=== PATIENT | female | born 1970 | race Caucasian/White ===

== ENCOUNTER 2017-06-19 12:59 | Emergency (ER) | payer SELFPAY ==
[~2017-06-19] VITALS: Ht 167.6 cm; Wt 75.0 kg
[~2017-06-19 12:59] MED LIST: LACO200T2 PO; LEVO125T PO; LEVO25TA53 PO
[2017-06-19 13:06] VITALS: Ht 167.6 cm; Wt 75.0 kg
== END 2017-06-19 13:06 | disposition left against medical advice (07) ==
LOC: E/R 12:59
DX: Z53.21 Procedure and treatment not carried out due to patient leaving prior to being seen by health care provider (principal)

== ENCOUNTER 2018-10-13 23:47 | Observation (INO) | payer OTHER ==
[~2018-10-13] VITALS: Ht 175.3 cm; Wt 81.8 kg
[~2018-10-13 23:47] MED LIST changes: -LEVO25TA53 PO; +LEVO25TA6 PO
[2018-10-13] MEDS ORDERED: SOD CHLORIDE 0.9% 1,000 ML IV STA (23:57)
[2018-10-13] MEDS ORDERED: LORAZEPAM 2 MG INJ IV STA (23:57)
[2018-10-14] VITALS (9 sets, daily range): BP systolic 121–145; BP diastolic 64–79; PULSE 76–95; RESP 18–22; Ht 175.3 cm; Wt 81.8 kg
[2018-10-14] MEDS ORDERED: LORAZEPAM 2 MG INJ IV ONE (01:30)
--- NOTE | 2018-10-14 01:35 | ERD ---
ER Documentation Chief Complaint Chief Complaint ERICKSON ALEJANDRA,from home,seizure,hx sz,Jose dz,MS HPI This is a 48-year-old brought in by rescue [facility] from home with complaints of seizure. Patient has a history of seizure disease and is on Vimpat at home. She is been compliant with her medications. Also has history of multiple scl erosis. Patient was postictal upon arrival and had another seizure here in the department was given another dose of intravenous Ativan. Apparently the patient has a difficult seizure history per the at the bedside. Reviewing EMR, patient has been under a few times with similar complaints. According to patient was at baseline health status until the seizure episode ROS All systems reviewed and are negative except as per history of present illness. Medications Home Meds Active Scripts Lacosamide (Vimpat) 200 Mg Tablet, 200 MG PO BID, #60 TAB Prov:ADALBERTO GUERRA MD 12/11/15 Reported Medications Levothyroxine Sodium* (Synthroid*) 125 Mcg Tablet, 125 MCG PO BEFORE BREAKFAST, #30 TAB 12/11/15 Levothyroxine Sodium* (Levothyroxine Sodium*) 25 Mcg Tablet, 25 MCG PO AC BREAKFAST, TAB 05/14/15 Allergies Allergies: Coded Allergies: levetiracetam (Verified Allergy, Severe, SEVERE CONFUSION, 08/29/15) Uncoded Allergies: HORMONES (Allergy, Unknown, 09/13/14) UNK TYPE OF ABX (Allergy, Unknown, 09/13/14) PMhx/Soc History of Surgery: Yes (RIGHT ANKLE FRACTURE AND SX (JANUARY 2016)) Anesthesia Reaction: No Hx Neurological Disorder: Yes (MULTIPLE SCLEROSIS,seizure) Hx Respiratory Disorders: No Hx Cardiac Disorders: No Hx Psychiatric Problems: No Hx Miscellaneous Medical Probl: Yes (HERPES ZOSTER, MONONUCLEOSIS,Jose dz) Hx Alcohol Use: Yes (SOCIALLY) Hx Substance Use: No Hx Tobacco Use: No Smoking Status: Never smoker Physical Exam Vitals Vital Signs Date Temp Pulse Resp B/P (MAP) Pulse Ox O2 O2 Flow FiO2 Time Delivery Rate 10/14/18 97.7 62 18 208/175 97 00:05 (186) Physical Exam Const: No acute distress Head: Atraumatic Eyes: Normal Conjunctiva ENT: Normal External Ears, Nose and Mouth. Neck: Full range of motion. No meningismus. Resp: Clear to auscultation bilaterally Cardio: Regular rate and rhythm, no murmurs Abd: Soft, non tender, non distended. Normal bowel sounds Skin: No petechiae or rashes Back: No midline or flank tenderness Ext: No cyanosis, or edema Neur: Awake and alert Psych: Normal Mood and Affect Result Diagram: 10/14/18 0038 10/14/188 Results 24 hrs Laboratory Tests Test 10/14/18 00:38 White Blood Count 10.6 10^3/ul Red Blood Count 4.54 10^6/ul Hemoglobin 14.1 g/dl Hematocrit 37.9 % Mean Corpuscular Volume 83.5 fl Mean Corpuscular Hemoglobin 31.1 pg Mean Corpuscular Hemoglobin Concent 37.2 g/dl Red Cell Distribution Width 11.4 % Platelet Count 325 10^3/UL Mean Platelet Volume 8.3 fl Immature Granulocytes % 0.400 % Neutrophils % 81.6 % Lymphocytes % 13.6 % Monocytes % 3.8 % Eosinophils % 0.3 % Basophils % 0.3 % Nucleated Red Blood Cells % 0.0 /100WBC Immature Granulocytes # 0.040 10^3/ul Neutrophils # 8.6 10^3/ul Lymphocytes # 1.4 10^3/ul Monocytes # 0.4 10^3/ul Eosinophils # 0.0 10^3/ul Basophils # 0.0 10^3/ul Nucleated Red Blood Cells # 0.0 10^3/ul Sodium Level 124 mmol/L Potassium Level 3.3 mmol/L Chloride Level 86 mmol/L Carbon Dioxide Level 27 mmol/L Anion Gap 11 Blood Urea Nitrogen 10 mg/dl Creatinine 0.47 mg/dl Est Glomerular Filtrat Rate mL/min > 60 mL/min Glucose Level 156 mg/dl Calcium Level 9.2 mg/dl Current Medications Medications Dose Sig/Vashti Start Time Status Last (Trade) Ordered Route PRN Stop Time Admin Dose Reason Admin Sodium 1,000 ml @ Q1H STAT 10/13/18 DC 10/14/18 Chloride 1,000 mls/hr IV 23:57 10/14/18 00:07 00:56 Lorazepam 1 mg ONCE STAT 10/13/18 DC 10/14/18 (Ativan) IV 23:57 10/14/18 00:07 00:04 Lorazepam 2 mg ONCE ONCE 1/2/19 DC (Ativan) IV 01:30 10/14/18 01:31 Procedures/MDM Medical decision making: This is a very pleasant patient who unfortunately suffers from seizure disorder. Given her multiple seizures here multiple doses of intravenous benzodiazepines that were not necessitated, patient will be admitted to hospitalist for further evaluation and care. Dr. CORRAL made aware 1:36 AM. Critical Care: Time: 35 minutes, independent of any separately billable procedural time Treatments/Evaluations: Close monitoring and treatment of unstable vital signs, cardiorespiratory, and neurologic status, while maintaining tight balance of fluid, respiratory, and cardiac interventions. Departure Diagnosis: Primary Impression: Seizure disorder Additional Impressions: Postictal state Multiple sclerosis Seizure Condition: Serious CARLA MONAHAN Oct 14, 2018 01:35
[2018-10-14] MEDS ORDERED: NACL 0.9% 3 ML SYG IV SCH (05:00)
[2018-10-14] MEDS ORDERED: ACETAMINOPHEN 325 MG TAB PO PRN (05:00)
[2018-10-14] MEDS ORDERED: DIAZEPAM 5 MG/ML SYG IV PRN (05:00)
[2018-10-14] MEDS ORDERED: METOCLOPRAMIDE 10 MG INJ IV PRN (05:00)
[2018-10-14] MEDS ORDERED: SOD CHLORIDE 0.9% 1,000 ML IV SCH (05:00)
[2018-10-14] MEDS ORDERED: LABETALOL HCL 20MG INJ IV PRN (05:00)
--- NOTE | 2018-10-14 06:09 | HP ---
Date/Time of Note Date/Time of Note DATE: 10/14/18 TIME: 06:02 Assessment/Plan Lines/Catheters IV Catheter Type (from [facility]): Saline Lock Urinary Cath still in place: Yes Assessment/Plan Assessment/Plan 1. Seizure, currently patient in postictal state -Patient has a history of seizure. Last seizure was almost 3 years ago -Treat hyponatremia -Will continue home meds -As needed Valium for breakthrough seizure since reportedly patient claimed Ativan usually not effective -Obtain brain imaging given initial presentation with severely elevated BP -Speech/swallow evaluation. Also PT eval prior to discharge -Neurology consult 2. History of multiple sclerosis: Continue home meds 3. Hypertensive urgency -BP better controlled. Adjust antihypertensive as needed -will obtain head CT. See #1 4. Hyponatremia: -Check urine sodium as well as urine and plasma osmolality 5. Hypothyroidism: Check TSH. Continue Synthroid 6. Mild hypokalemia: Replete Result Diagram: 10/14/188 10/14/188 Results 24hrs Laboratory Tests Test 10/14/18 00:38 White Blood Count 10.6 Red Blood Count 4.54 Hemoglobin 14.1 Hematocrit 37.9 Mean Corpuscular Volume 83.5 Mean Corpuscular Hemoglobin 31.1 Mean Corpuscular Hemoglobin Concent 37.2 H Red Cell Distribution Width 11.4 L Platelet Count 325 Mean Platelet Volume 8.3 Immature Granulocytes % 0.400 Neutrophils % 81.6 H Lymphocytes % 13.6 L Monocytes % 3.8 Eosinophils % 0.3 Basophils % 0.3 Nucleated Red Blood Cells % 0.0 Immature Granulocytes # 0.040 H Neutrophils # 8.6 H Lymphocytes # 1.4 Monocytes # 0.4 Eosinophils # 0.0 Basophils # 0.0 Nucleated Red Blood Cells # 0.0 Sodium Level 124 L Potassium Level 3.3 L Chloride Level 86 L Carbon Dioxide Level 27 Anion Gap 11 Blood Urea Nitrogen 10 Creatinine 0.47 Est Glomerular Filtrat Rate mL/min > 60 Glucose Level 156 Calcium Level 9.2 HPI/ROS Admit Date/Time Admit Date/Time Oct 14, 2018 at 01:33 Hx of Present Illness This is a 48-year-old female with a history of seizure, multiple sclerosis, hypothyroidism who was brought to the ER after having had a seizure. I patient is currently lethargic and unable to give any history and as such information is gathered from chart review and from the ER physician. Reportedly, last seizure was almost 3 years ago. She was actually admitted here at that time. When she presented to ER, blood pressure was severely elevated with a heart rate of 130. Sodium 124, potassium 3.3, chloride 86. PMH/Family/Social Past Medical History Medications Current Medications IV Flush (NS 3 ml) 3 ml PER PROTOCOL IV ; Start 10/14/18 at 05:00 Metoclopramide HCl (Reglan) 10 mg Q6H PRN IV NAUSEA AND/OR VOMITING; Start 10/14/18 at 05:00 Acetaminophen (Tylenol Tab) 650 mg Q6H PRN PO PAIN LEVEL 1-3 OR FEVER; Start 10/14/18 at 05:00 Levothyroxine Sodium (Synthroid) 125 mcg BEFORE BREAKFAST PO ; Start 10/14/18 at 07:00 Lacosamide (Vimpat Liq) 200 mg BID PO ; Start 10/14/18 at 09:00 Diazepam (Valium) 5 mg PRN PRN IV seizure; Start 10/14/18 at 05:00 Sodium Chloride 1,000 ml @ 100 mls/hr Q10H IV ; Start 10/14/18 at 05:00 Labetalol HCl (Labetalol) 10 mg Q4H PRN IV sbp > 165; Start 10/14/18 at 05:00 Coded Allergies: levetiracetam (Verified Allergy, Severe, SEVERE CONFUSION, 08/29/15) Uncoded Allergies: HORMONES (Allergy, Unknown, 09/13/14) UNK TYPE OF ABX (Allergy, Unknown, 09/13/14) Family History Significant Family History: other Social History Smoking Status: Never smoker Exam/Review of Systems Vital Signs Vitals Vital Signs Date Temp Pulse Resp B/P (MAP) Pulse Ox O2 O2 Flow FiO2 Time Delivery Rate 10/14/18 84 04:00 10/14/18 98.6 18 145/79 100 Room Air 02:52 (101) Exam Constitutional: other (Lethargic) Head: normocephalic, atraumatic Respiratory: clear to auscultation, normal air movement Cardiovascular: regular rate and rhythm, nl pulses Gastrointestinal: soft Extremities: normal pulses CARLA CORRAL MD Oct 14, 2018 06:09
--- NOTE | 2018-10-14 07:18 | NUR ---
EOSS: Received patient from ER around 0300 alert and oriented x 1, (to self) confused, stable vss noted, NSR on the monitor. afebrile, seizure precautions maintained, no seizure activities noted since admission to the floor (6[address]). skin breakdown prevention observed, unable to reposition self in bed, reposition done q 2 hours, skin assessed and intact, no skin breakdown noted. Hourly round done. NPO for speech therapy eval.
[2018-10-14] MEDS ORDERED: POTASSIUM CHLORIDE 100 ML IVPB ONE (07:30)
--- NOTE | 2018-10-14 10:26 | CONS ---
Assessment/Plan Assessment/Plan Hospital Course A: 48 F c/ reported Hx of MS and epilepsy...who presents for evaluation following a breakthrough seizure. Of note, her admission Na level was severely low, which is a likely contributor.. P: Continue Vimpat as ordered Ativan iv prn prolonged seizure or cluster Continued medical management per primary Add UA, UDS, Phos, LFTs.. Will follow clinically Result Diagram: 10/14/188 10/14/188 Results 24hrs Laboratory Tests Test 10/14/18 00:38 10/14/18 07:26 White Blood Count 10.6 Red Blood Count 4.54 Hemoglobin 14.1 Hematocrit 37.9 Mean Corpuscular Volume 83.5 Mean Corpuscular Hemoglobin 31.1 Mean Corpuscular Hemoglobin Concent 37.2 H Red Cell Distribution Width 11.4 L Platelet Count 325 Mean Platelet Volume 8.3 Immature Granulocytes % 0.400 Neutrophils % 81.6 H Lymphocytes % 13.6 L Monocytes % 3.8 Eosinophils % 0.3 Basophils % 0.3 Nucleated Red Blood Cells % 0.0 Immature Granulocytes # 0.040 H Neutrophils # 8.6 H Lymphocytes # 1.4 Monocytes # 0.4 Eosinophils # 0.0 Basophils # 0.0 Nucleated Red Blood Cells # 0.0 Sodium Level 124 L Potassium Level 3.3 L Chloride Level 86 L Carbon Dioxide Level 27 Anion Gap 11 Blood Urea Nitrogen 10 Creatinine 0.47 Est Glomerular Filtrat Rate mL/min > 60 Glucose Level 156 Calcium Level 9.2 Osmolality 254 L Consultation Date/Type/Reason Admit Date/Time Oct 14, 2018 at 01:33 Type of Consult Neurology Reason for Consultation epilepsy Requesting Provider: ROBIN SAL NP Date/Time of Note DATE: 10/14/18 TIME: 10:26 Hx of Present Illness Poor historian. It is elsewhere noted: This is a 48-year-old female with a history of seizure, multiple sclerosis, hypothyroidism who was brought to the ER after having had a seizure. I patient is currently lethargic and unable to give any history and as such information is gathered from chart review and from the ER physician. Reportedly, last seizure was ~2 years ago. She was actually admitted here at that time. When she presented to ER, blood pressure was severely elevated with a heart rate of 130. Sodium 124, potassium 3.3, chloride 86. 12 PT ROS ow neg Exam/Review of Systems Vital Signs Vitals Vital Signs Date Temp Pulse Resp B/P (MAP) Pulse Ox O2 O2 Flow FiO2 Time Delivery Rate 10/14/18 76 08:00 10/14/18 96.6 22 122/64 96 Room Air 07:48 (83) Exam PE: Gen Appearance: No Apparent Distress HEENT: Normocephalic Cardiovascular: Regular rate Abdomen: Soft Extremities: Dry NE: The patient was lethargic, disoriented, sparsely verbal.. Cranial nerve examination was limited by mental status. Pupils were equal and reactive to light. There was no afferent pupillary defect. Funduscopic examination was limited. Face was grossly symmetric, w/ present corneal and cough reflexes. Tone was normal. Muscle bulk was normal. I did not see fasciculations. The patient was diffusely weak, worst in her left arm and b/l legs.. Coordination and gait testing was limited by mental status. Arm and leg reflexes were within normal limits and symmetric. Marino's sign was absent. Plantar responses were flexor. Medications Medications Current Medications IV Flush (NS 3 ml) 3 ml PER PROTOCOL IV ; Start 10/14/18 at 05:00 Metoclopramide HCl (Reglan) 10 mg Q6H PRN IV NAUSEA AND/OR VOMITING; Start 10/14/18 at 05:00 Acetaminophen (Tylenol Tab) 650 mg Q6H PRN PO PAIN LEVEL 1-3 OR FEVER; Start 10/14/18 at 05:00 Levothyroxine Sodium (Synthroid) 125 mcg BEFORE BREAKFAST PO ; Start 10/14/18 at 07:00 Lacosamide (Vimpat Liq) 200 mg BID PO ; Start 10/14/18 at 09:00 Diazepam (Valium) 5 mg PRN PRN IV seizure; Start 10/14/18 at 05:00 Sodium Chloride 1,000 ml @ 100 mls/hr Q10H IV Last administered on 10/14/18at 08:00; Admin Dose 100 MLS/HR; Start 10/14/18 at 05:00 Labetalol HCl (Labetalol) 10 mg Q4H PRN IV sbp > 165; Start 10/14/18 at 05:00 Past Medical History reviewed Medications Current Medications IV Flush (NS 3 ml) 3 ml PER PROTOCOL IV ; Start 10/14/18 at 05:00 Metoclopramide HCl (Reglan) 10 mg Q6H PRN IV NAUSEA AND/OR VOMITING; Start 10/14/18 at 05:00 Acetaminophen (Tylenol Tab) 650 mg Q6H PRN PO PAIN LEVEL 1-3 OR FEVER; Start 10/14/18 at 05:00 Levothyroxine Sodium (Synthroid) 125 mcg BEFORE BREAKFAST PO ; Start 10/14/18 at 07:00 Lacosamide (Vimpat Liq) 200 mg BID PO ; Start 10/14/18 at 09:00 Diazepam (Valium) 5 mg PRN PRN IV seizure; Start 10/14/18 at 05:00 Sodium Chloride 1,000 ml @ 100 mls/hr Q10H IV Last administered on 10/14/18at 08:00; Admin Dose 100 MLS/HR; Start 10/14/18 at 05:00 Labetalol HCl (Labetalol) 10 mg Q4H PRN IV sbp > 165; Start 10/14/18 at 05:00 Allergies: Coded Allergies: levetiracetam (Verified Allergy, Severe, SEVERE CONFUSION, 08/29/15) Uncoded Allergies: HORMONES (Allergy, Unknown, 09/13/14) UNK TYPE OF ABX (Allergy, Unknown, 09/13/14) Past Surgical History reviewed Social History Smoking Status: Never smoker PAULO TORRES Oct 14, 2018 10:26
--- NOTE | 2018-10-14 10:36 | NUR ---
PT EVALUATION , Therapy day number 1 Evaluation Start Time 09:00 Evaluation Total Time 0 min Subjective Denies pain Pain Scale NUMERIC Pain Intensity 0 (0-10) Patient Stated Goal for Pain Relief 0 (0-10) Pain Level Comment N/A Pre Treatment Vital Signs Stable Yes - BP:122/64 HR:79 Exercise Assessment Label Bilat Lower Extremity Exercise Type Manual Stretching Additional Exercise Comments BLE'S . ( OCC.ABLE TO PARTICIPATE IN AA/ROM HIPS AND KNEES). Supine to Sit Dependent Transfer Sit to Stand Ability Dependent Bed Mobility Sit to Supine Dependent Bed Transfer Ability Dependent Chair Transfer Ability Dependent Toileting Ability Dependent Patient uses wheelchair Not Applicable Gait Assist Levels Dependent Weight Bearing Assessment Label Bilat Lower Extremity Weight Bearing Status Full Weight Bearing Additional Balance Assessments Comments U/A TO ASSESS , PATIENT IS DEPENDENT IN BED MOBILITY . Safety Judgement Poor Activity Tolerance Poor Equipment Present Lora Catheter IV pump Additional Equipment Present ON HOLTER MONITOR . Post Treatment Pain Intensity 0 0-10 Variance Documentation P/S SEE PT NOTE . Additional Post Treatment Comment LETHARGIC , BUT AROUSE EASILY . . . PT Technical Record Comment PT EVALUATION . , S: RN CLEARED , PATIENT AGREEABLE , PARER AT BED SIDE . O; PATIENT IS A 48 Y/O FEMALE , ONLY ALERT AND ORIENTED TO NAME , LAST NAME , DISORIENTED TO DAY, MOTH AND YEAR ,ABLE TO FOLLOW ONE STEP COMMAND , WITH PMH: SEIZURE , MS , HTN ADMITTED TO [facility] AFTER HAVING HAD A SEIZURE , PATIENT FOUND IN IN BED LETHARGIC BUT AROUSE EASILY ,ABLE TO FOLLOW ONE STEP COMMAND , PERFORMED MANUAL STRETCHING BLE'S PATENT OCC.ABLE TO PARTICIPATE IN AA/ ROM HIPS AND KNEES , SEEMS RLE STRONGER THAN LLE, NOTE FRANCK.DROP FOOT , VS STABLE TOLERATED TREATMENT FAIRLY . A: PATIENT LIVES WITH IN A HOUSE WITH 12HRS DAILY PARER, HAS BEEN BED BOUND/W/C BOUND , AND NON-AMBULATORY , PER PARER REPORT USING [facility] FOR TRANSFERRING HIM FROM BED <> TO W/C WITH [facility], PLAN TO RETURN HOME ONCE CLEARED BY MD , NO DME NEEDS , PT RECOMMEND PT FOLLOW UP . P: PT DAILY X3 ( BED MOBILITY TR, MANUAL STRETCHING BLE'S , RE-ASSESS FOR SITTING BALANCE EXE'S / ACTIVITIES WHEN / IF ABLE , PARER TR, PATIENT EDUCATION ).
--- NOTE | 2018-10-14 11:04 | QN ---
Documentation Comment This is a 48-year-old female with a known medical history of hypertension, multiple sclerosis, hypothyroidism, seizure disorders, was brought in with seizures overnight. Continue current seizure management. I will also request neurology consult. Patient's labs reviewed and she is also hyponatremic. From history, patient has been having polydipsia and has been drinking a lot of water per her caregiver. Most likely, she could have dilutional/hypotonic hyponatremia and this could be the culprit of provoking seizure activities. At this time, I recommend stopping IV fluids. Limit further intake of water. Monitor sodium level every 4 hours. Follow-up TSH level. Will consider nephrology or endocrinology consult depends on further sodium level and labs ordered. We will start her on a diet as tolerated. Monitor labs and neuro checks. I will also order A1c to rule out possible diabetes. case d/w ROBIN Clarke NP Oct 14, 2018 11:04
[2018-10-14] MEDS: LEVOTHYROXINE 125 MCG TAB PO SCH (12:19)
[2018-10-14] MEDS: LACOSAMIDE (100 MG/10 ML PO SYR) PO SCH ×2 (12:19→20:35)
--- NOTE | 2018-10-14 13:25 | NUR ---
pt is a 48 year old female admitted s/p Seizure at home; pt has a caregiver; PMH: Multiple Sclerosis; HTN: Hyponatremia: pt afebrile; lungs clear; in am pt too lethargic; pt then woke up; received call from kamryn; pt now on reg/thin diet; pt does have delay in her swallow with thin liquids; permanent dentition; adequate for mastication; pt had just finished tray; will f/up in am tomorrow; vocal quality breathy; low vocal volume;
[2018-10-14] MEDS ORDERED: CLOB2.5O PO (19:04)
[2018-10-15] VITALS: BP 99/58; PULSE 78; PULSE 84; RESP 18
[2018-10-15 04:00] VITALS: BP 107/61; PULSE 78; PULSE 92; RESP 18
--- NOTE | 2018-10-15 05:21 | NUR ---
eoss; pt slept well during the night no apparent distress .tele showed sr 83. repositioned q2 hours.adequate amount of urine output aspiration precaution observed. pts verbalizing wish to take pt home made him aware that md needs to see patient first.will endorse to am rn.
[2018-10-15] MEDS: LEVOTHYROXINE 125 MCG TAB PO SCH (06:33)
[2018-10-15 07:10] VITALS: BP 108/59; PULSE 87; RESP 18
[2018-10-15 08:02] VITALS: PULSE 75
--- NOTE | 2018-10-15 09:47 | PDOCDIS ---
Discharge Instructions CONDITION [id number] Patient Condition: [id number] Stable HOME CARE INSTRUCTIONS: [id number] Special Diet: [id number] reg with thin liquid FOLLOW UP/APPOINTMENTS Follow-up Plan Follow-up with primary care physician in 1 week ROBIN SAL NP Oct 15, 2018 09:47
[2018-10-15] MEDS: LACOSAMIDE (100 MG/10 ML PO SYR) PO SCH (09:49)
--- NOTE | 2018-10-15 09:53 | DS ---
Date/Time of Note Date/Time of Note DATE: 10/15/18 TIME: 09:50 Discharge Summary Admission/Discharge Info Admit Date/Time Oct 14, 2018 at 01:33 Discharge Date/Time Discharge Diagnosis Breakthrough seizures, likely attributed by hyponatremia. Resolved. Dilutional hyponatremia secondary to excessive water intake. Resolved. hypertension multiple sclerosis, hypothyroidism seizure disorders Patient Condition: Stable Consults ,neurologist Procedures 10-14-18. CT brain. IMPRESSION: No acute intracranial abnormalities. Severe diffuse supratentorial white matter disease is present which is premature for the patient's age, similar to the previous examination. Hospital Course 48-year-old female with a known medical history of hypertension, multiple sclerosis/bedbound w/Shruthi lift, hypothyroidism, seizure disorders, was brought in with seizures overnight. Patient was found to have severe hyponatremia on arrival. Workup and clinical history consistent with hypotonic/dilutional hyponatremia and this is most likely contributing to seizures. Patient was counseled on limiting further excessive water intake. Her sodium was monitored closely and remained stable. Patient did not have any changes in neuro status. There was no further seizure activities. She was also being followed by our neurologist. Toxicology was negative for any substance abuse. At this time, patient is feeling back to her baseline, vital signs stable labs stable. Tolerating diet. 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 Approximately 60 minutes was spent on coordinating the discharge on this patient. Patient was seen in collaboration with Dr. Ruiz. Home Meds Active Scripts Lacosamide (Vimpat) 200 Mg Tablet, 200 MG PO BID, #60 TAB Prov:ADALBERTO GUERRA MD 12/11/15 Reported Medications Clobazam (Onfi) 2.5 Mg/1 Ml Oral.susp, 15 MG PO BID, ML 10/14/18 Levothyroxine Sodium* (Synthroid*) 125 Mcg Tablet, 125 MCG PO BEFORE BREAKFAST, #30 TAB 12/11/15 Levothyroxine Sodium* (Levothyroxine Sodium*) 25 Mcg Tablet, 25 MCG PO AC BREAKFAST, TAB 05/14/15 Follow-up Plan Follow-up with primary care physician in 1 week Primary Care Provider Not On Staff Doctor Pending Labs Laboratory Tests Test 10/14/18 11:15 10/14/18 12:22 10/14/18 14:47 10/14/18 14:53 Urine Color STRAW (YELLOW) Urine Clarity CLEAR (CLEAR) Urine pH 7.0 (5.0-9.0) Urine Specific 1.003 (1.003-1. [place] 030) Urine Ketones NEGATIVE mg/dL (NEGATIVE ) Urine Nitrite NEGATIVE mg/dL (NEGATIVE ) Urine NEGATIVE Bilirubin mg/dL (NEGATIVE ) Urine NEGATIVE Urobilinogen mg/dL (NEGATIVE ) Urine Leukocyte 3+ Esterase Rae/ul (NEGATIV E) Urine 1 /HPF (0-5) Microscopic RBC Urine 22 /HPF (0-5) Microscopic WBC Urine Bacteria FEW /HPF (NONE SEEN) Urine Mucus FEW /HPF (NONE SEEN) Urine 1+ Hemoglobin mg/dL (NEGATIVE ) Urine 99 Osmolality mOsm/kg (250-12 00) Urine Random 17 Sodium mmol/L (30-90) Urine Glucose NEGATIVE mg/dL (NEGATIVE ) Urine Total NEGATIVE Protein mg/dl (NEGATIVE ) Urine Opiates Negative (NEGAT Screen MANDI) Urine Negative (NEGAT Barbiturates MANDI) Urine Negative (NEGAT Amphetamines MANDI) Screen Urine Positive (NEGAT Benzodiazepines MANDI) Screen Urine Cocaine Negative (NEGAT Screen MANDI) Urine Negative (NEGAT Cannabinoids MANDI) Sodium Level 132 132 mmol/L (135-14 mmol/L (135-14 4) 4) Hemoglobin A1c 4.5 % (0-5.9) Magnesium 1.8 Level mg/dl (1.7-2.5 ) Thyroid 2.400 Stimulating MIU/L (0.465-4 Hormone (TSH) .680) Phosphorus 3.5 Level mg/dl (2.5-4.9 ) Total 0.3 Bilirubin mg/dl (0.2-1.3 ) Direct 0.00 Bilirubin mg/dl (0.00-0. 20) Indirect 0.3 Bilirubin mg/dl (0-1.1) Aspartate Amino 23 Transf (AST/SGO IU/L (15-46) T) Alanine 40 Aminotransferas IU/L (13-69) e (ALT/SGPT) Alkaline 91 Phosphatase IU/L (42-121) Total Protein 7.0 g/dl (6.1-8.1) Albumin 4.2 g/dl (3.3-4.9) Test 10/14/18 21:32 10/15/18 04:59 Sodium Level 137 139 mmol/L (135-144 mmol/L (135-14 ) 4) White Blood 7.2 Count 10^3/ul (4.8-1 0.8) Red Blood 4.83 Count 10^6/ul (4.20- 5.40) Hemoglobin 14.9 g/dl (12.0-16. 0) Hematocrit 41.6 % (37.0-47.0) Mean 86.1 Corpuscular fl (82.0-101.0 Volume ) Mean 30.8 Corpuscular pg (29.0-33.0) Hemoglobin Mean 35.8 Corpuscular g/dl (32.0-37. Hemoglobin Conc 0) ent Red Cell 12.0 Distribution % (11.5-14.5) Width Platelet Count 356 10^3/UL (140-4 15) Mean Platelet 8.8 Volume fl (7.4-10.4) Immature 0.300 Granulocytes % % (0.001-0.429 ) Neutrophils % 61.5 % (39.0-77.0) Lymphocytes % 28.1 % (15.0-51.0) Monocytes % 8.9 % (0.0-11.0) Eosinophils % 0.6 % (0.0-7.0) Basophils % 0.6 % (0.0-2.0) Nucleated Red 0.0 Blood Cells % /100WBC (0.0-0 .0) Immature 0.020 Granulocytes # 10^3/ul (0.0-0 .031) Neutrophils # 4.4 10^3/ul (1.6-7 .5) Lymphocytes # 2.0 10^3/ul (0.8-2 .9) Monocytes # 0.6 10^3/ul (0.3-0 .9) Eosinophils # 0.0 10^3/ul (0.0-0 .5) Basophils # 0.0 10^3/ul (0.0-0 .1) Nucleated Red 0.0 Blood Cells # 10^3/ul (0.0-0 .0) Potassium 3.8 Level mmol/L (3.5-5. 1) Chloride Level 102 mmol/L (97-110 ) Carbon Dioxide 24 Level mmol/L (21-31) Anion Gap 13 (5-13) Blood Urea 12 Nitrogen mg/dl (7-20) Creatinine 0.68 mg/dl (0.44-1. 00) Est Glomerular > 60 Filtrat mL/min (>60) Rate mL/min Glucose Level 92 mg/dl (70-220) Hemoglobin A1c 4.5 % (0-5.9) Calcium Level 9.7 mg/dl (8.4-10. 2) Magnesium 2.0 Level mg/dl (1.7-2.5 ) Total 0.3 Bilirubin mg/dl (0.2-1.3 ) Direct 0.00 Bilirubin mg/dl (0.00-0. 20) Indirect 0.3 Bilirubin mg/dl (0-1.1) Aspartate Amino 21 Transf (AST/SGO IU/L (15-46) T) Alanine 39 Aminotransferas IU/L (13-69) e (ALT/SGPT) Alkaline 89 Phosphatase IU/L (42-121) Total Protein 6.7 g/dl (6.1-8.1) Albumin 4.0 g/dl (3.3-4.9) Globulin 2.70 g/dl (1.3-3.2) Albumin/Globuli 1.48 n Ratio Triglycerides 106 Level mg/dl (0-149) Cholesterol 181 Level mg/dl (100-200 ) LDL 108 mg/dl Cholesterol, Calculated HDL 52 Cholesterol mg/dl (37-92) Cholesterol/HDL 3.4 RATIO Ratio Thyroid 7.000 Stimulating MIU/L (0.465-4 Hormone (TSH) .680) ROBIN SAL NP Oct 15, 2018 09:53
[2018-10-15 11:25] VITALS: BP 130/78; PULSE 82; RESP 18
[2018-10-15 12:01] VITALS: PULSE 89
--- NOTE | 2018-10-15 13:52 | CONS ---
Assessment/Plan Assessment/Plan Hospital Course A: 48 F c/ reported Hx of MS and epilepsy...who presents for evaluation following a breakthrough seizure. Of note, her admission Na level was severely low, which is a likely contributor.. P: Continue Vimpat as ordered Ativan iv prn prolonged seizure or cluster Continued medical management per primary Will follow clinically Result Diagram: 10/15/18 0459 10/15/18 0459 Results 24hrs Laboratory Tests Test 10/14/18 14:47 10/14/18 14:53 10/14/18 21:32 10/15/18 04:55 Phosphorus Level 3.5 Total Bilirubin 0.3 Direct Bilirubin 0.00 Indirect Bilirubin 0.3 Aspartate Amino 23 Transf (AST/SGOT) Alanine 40 Aminotransferase (ALT/SG PT) Alkaline Phosphatase 91 Total Protein 7.0 Albumin 4.2 Sodium Level 132 L 137 Free Thyroxine 1.40 Test 10/15/18 04:59 White Blood Count 7.2 # Red Blood Count 4.83 Hemoglobin 14.9 Hematocrit 41.6 Mean Corpuscular Volume 86.1 Mean Corpuscular 30.8 Hemoglobin Mean Corpuscular 35.8 Hemoglobin Concent Red Cell Distribution 12.0 Width Platelet Count 356 Mean Platelet Volume 8.8 Immature Granulocytes % 0.300 Neutrophils % 61.5 Lymphocytes % 28.1 Monocytes % 8.9 Eosinophils % 0.6 Basophils % 0.6 Nucleated Red Blood 0.0 Cells % Immature Granulocytes # 0.020 Neutrophils # 4.4 Lymphocytes # 2.0 Monocytes # 0.6 Eosinophils # 0.0 Basophils # 0.0 Nucleated Red Blood 0.0 Cells # Sodium Level 139 Potassium Level 3.8 Chloride Level 102 # Carbon Dioxide Level 24 Anion Gap 13 Blood Urea Nitrogen 12 Creatinine 0.68 Est Glomerular Filtrat > 60 Rate mL/min Glucose Level 92 # Hemoglobin A1c 4.5 Calcium Level 9.7 Magnesium Level 2.0 Total Bilirubin 0.3 Direct Bilirubin 0.00 Indirect Bilirubin 0.3 Aspartate Amino 21 Transf (AST/SGOT) Alanine 39 Aminotransferase (ALT/SG PT) Alkaline Phosphatase 89 Total Protein 6.7 Albumin 4.0 Globulin 2.70 Albumin/Globulin Ratio 1.48 Triglycerides Level 106 Cholesterol Level 181 LDL Cholesterol, 108 Calculated HDL Cholesterol 52 Cholesterol/HDL Ratio 3.4 Thyroid Stimulating 7.000 H Hormone (TSH) Consultation Date/Type/Reason Admit Date/Time Oct 14, 2018 at 01:33 Type of Consult Neurology Requesting Provider: ROBIN SAL NP Date/Time of Note DATE: 10/15/18 TIME: 13:52 24 HR Interval Summary Free Text/Dictation Continues telemetry monitoring. Pt and family at bedside stated that the pt appears much better today. Awaiting discharge. Exam Vital Signs Vitals Vital Signs Date Temp Pulse Resp B/P (MAP) Pulse Ox O2 O2 Flow FiO2 Time Delivery Rate 10/15/18 89 12:01 10/15/18 98.4 18 130/78 96 Room Air 11:25 (95) Intake and Output 10/14/18 10/14/18 10/15/18 1515:00 23:00 07:00 IntakeIntake Total 690 ml 240 ml 100 ml OutputOutput Total 900 ml 1700 ml 1400 ml BalanceBalance -210 ml -1460 ml -1300 ml Exam PE: Gen Appearance: No Apparent Distress HEENT: Normocephalic Cardiovascular: Regular rate Abdomen: Soft Extremities: Dry NE: The patient was lethargic, disoriented, sparsely verbal.. Cranial nerve examination was limited by mental status. Pupils were equal and reactive to light. There was no afferent pupillary defect. Funduscopic examination was limited. Face was grossly symmetric, w/ present corneal and cough reflexes. Tone was normal. Muscle bulk was normal. I did not see fasciculations. The patient was diffusely weak, worst in her left arm and b/l legs.. Coordination and gait testing was limited by mental status. Arm and leg reflexes were within normal limits and symmetric. Marino's sign was absent. Plantar responses were flexor. DEVIN ARCHULETA NP Oct 15, 2018 13:52
--- NOTE | 2018-10-15 13:57 | NUR ---
CM NOTE RECEIVED ORDER TO ARRANGE FOR HOME HEALTH, CM MET WITH PATIENT'S DELORIS CHASE AND PER , PT DOES NOT NEED HOME HEALTH, HE WILL ASSIST PT AT HOME, HE STATED THAT THE PT HAS HAD A LOT OF HOME HEALTH IN THE PAST AND IS REFUSING HOME HEALTH AT THIS TIME.BUTT TRIMMER FAYE MADE AWARE.
--- NOTE | 2018-10-15 15:53 | NUR ---
RN notes: PT discharged accompanied by , IV removed with tip intact, tele monitor removed. Belongings with senior product engineer.
== END 2018-10-15 14:55 | disposition home health service (06) ==
LOC: E/R 23:47 → 6WM 10-14 01:33
PROVIDERS: ADMIT Internal Medicine; ATTEND Internal Medicine
DX: E87.1 Hypo-osmolality and hyponatremia (principal); G40.909 Epilepsy, unspecified, not intractable, without status epilepticus; G35 Multiple sclerosis
CPT/HCPCS: 70450; 80048; 80053; 80061; 80076; 80307; 81001; 83036; 83735; 83930; 83935; 84100; 84295; 84300; 84439; 84443; 85025; 87086; 92610; 96374; 97161; 99291; G0378; J2060; J3480; J7030